=== PATIENT | male | born 1955 | race Caucasian/White ===

== ENCOUNTER 2022-11-09 10:45 | Day surgery (SDC) | payer OTHER ==
[~2022-11-09] VITALS: Ht 170.2 cm; Wt 62.1 kg
[2022-11-09] VITALS (7 sets, daily range): BP systolic 141–160; BP diastolic 73–92
[2022-11-09] MEDS ORDERED: normal saline 1000ml 1,000 ML IV PRN (11:05)
[2022-11-09] MEDS ORDERED: Vitamin D (11:29)
[2022-11-09] MEDS ORDERED: CYAN500T71 PO (11:29)
[2022-11-09] MEDS ORDERED: AMLO10TA PO (11:29)
[2022-11-09] MEDS ORDERED: ROSU5TAB12 (11:29)
[2022-11-09] MEDS ORDERED: DICLOFENAC NA (11:29)
[2022-11-09] MEDS ORDERED: FLUT1BLS13 (11:29)
[2022-11-09] MEDS ORDERED: NAPR-996 PO (11:29)
[2022-11-09] MEDS ORDERED: GUAI200T5 (11:29)
[2022-11-09] MEDS ORDERED: GABA300C PO (11:29)
== END 2022-11-09 12:15 | disposition home or self-care (01) ==
LOC: SSTAY O 10:45
PROVIDERS: ATTEND Radiology Diagnostic Radiology
DX: R59.0 Localized enlarged lymph nodes (principal); I10 Essential (primary) hypertension; M19.90 Unspecified osteoarthritis, unspecified site; J44.9 Chronic obstructive pulmonary disease, unspecified; Z88.8 Allergy status to other drugs, medicaments and biological substances; Z79.899 Other long term (current) drug therapy
CPT/HCPCS: 10005; J7030